=== PATIENT | male | born 1985 | race Caucasian/White ===

== ENCOUNTER 2020-06-23 03:58 | Emergency (ER) | payer OTHER ==
[2020-06-23 05:03] VITALS: BP 128/77
[2020-06-23] MEDS ORDERED: TETRACAINE HCL 0.5% OPH SOLN 4 ML OU ONE (05:48)
[2020-06-23] MEDS ORDERED: OXYCODONE-ACETAMINOPHEN 5-325 MG TABLET PO ONE (08:10)
--- NOTE | 2020-06-23 08:10 | ER Document Report ---
ED General - General Chief Complaint: Eye Pain Stated Complaint: EYE PROBLEMS/PAIN Time Seen by Provider: 06/23/20 07:42 Primary Care Provider: ABIGAIL,JEANNIE [Primary Care Provider] - Follow up as needed - HPI Notes: Chief complaint: Pain and redness of both eyes after welding. History of present illness: Previously healthy 34-year-old male taking no regular medications and not currently using glasses or contacts presents with redness and irritation of both eyes with associated pain after welding yesterday. Patient says he was wearing a protective shield. He notes that the re were a lot of fumes generated by the material he was welding. His eyes are extremely painful when he is exposed to light. He has mild blurring of vision. - Related Data Allergies/Adverse Reactions: Penicillins Allergy (Verified 06/23/20 05:04) Home Medications: buspar, ibuprofen, heart burn med, lexapro. Past Medical History - General Information source: Patient - Social History Smoking Status: Current Every Day Smoker Frequency of alcohol use: Occasional Drug Abuse: None Lives with: Family Family History: Reviewed & Not Pertinent - Medical History Medical History: Negative Surgical Hx: Negative Review of Systems - Review of Systems Notes: Constitutional: Negative for fever. HENT: Negative for sore throat. Eyes: As per HPI. Cardiovascular: Negative for chest pain. Respiratory: Negative for shortness of breath. Gastrointestinal: Negative for abdominal pain, vomiting or diarrhea. Genitourinary: Negative for dysuria. Musculoskeletal: Negative for back pain. Skin: Negative for rash. Neurological: Negative for headaches, weakness or numbness. 10 point ROS negative except as marked above and in HPI. Physical Exam - Vital signs Vitals: Temp Pulse Resp BP Pulse Ox 97.8 F 77 18 128/77 H 99 06/23/20 04:06 06/23/20 04:06 06/23/20 04:06 06/23/20 04:06 06/23/20 04:06 - Notes Notes: GENERAL: Well-developed well-nourished male approximately stated age appearing uncomfortable and photophobic. SKIN: Good turgor no rashes. HEAD: Normocephalic atraumatic. EYES: Bilateral conjunctival injection. PERRLA. EOMI. EARS: CANALS AND TMS CLEAR. NOSE: CLEAR. MOUTH: Moist mucosa. Good dentition. No stridor or edema. No drooling. NECK: Supple. No masses or thyromegaly. No adenopathy. Carotids 2+ without bruits. No JVD. BACK: Symmetrical without tenderness. CHEST: Respirations unlabored. Breath sounds clear and symmetrical. HEART: Regular rhythm. No murmur gallop or rub. ABDOMEN: Soft nontender without masses, organomegaly or rebound. Bowel sounds normally active. No bruits. GENITALIA: Deferred. EXTREMITIES: No edema. No calf tenderness. Cap refill less than 1.5 seconds. Dorsalis pedis and posterior tibial pulses 3+ and symmetrical. NEUROLOGICAL: GCS 15. Alert and oriented x3. Normal gait. Fluent speech. C ranial nerves II through XII intact. Sensorimotor and cerebellar normal. Normal tone. PSYCHIATRIC: Appropriate affect. - HEENT Visual acuity- Right eye: 20/20 Visual acuity- Left eye: 20/20 Visual acuity- Both eyes: 20/20 Corrective lenses worn: No Course - Re-evaluation Re-evalutation: 06/23/20 08:10 Patient has superficial UV briceno of the cornea bilaterally with punctate keratitis. Topical anesthetic drops here. Oral Percocet here. I will send him out on as needed Percocet and use of Cyclogyl and Polytrim drops with ophthalmology follow-up. Suggest use of sunglasses and avoidance of bright light. Findings, clinical impression and plan of treatment have been discussed with patient/family. Understanding of current findings and recommendations has been acknowledged by them and there is agreement regarding disposition and follow-up. - Vital Signs Vital signs: Temp Pulse Resp BP Pulse Ox 97.8 F 77 18 128/77 H 99 06/23/20 04:06 06/23/20 04:06 06/23/20 04:06 06/23/20 04:06 06/23/20 04:06 - Laboratory Results Critical Laboratory Results Reviewed: No Critical Results - Radiology Results Critical Radiology Results Reviewed: No Critical Results Procedures - Eye Procedure Bilateral Time completed: 08:05 Eye Irrigated w/ Saline (ccs): 200 Alcaine Drops Administered: Yes Fluorescein applied: Bilateral Slit lamp used: Yes Notes: 06/23/20 08:09 Bilateral conjunctival injection and changes consistent with a punctate keratitis. No foreign body on lid eversion. No ulcerations. No dendrites. Discharge - Discharge Clinical Impression: Superficial punctate keratitis of both eyes, UV corneal briceno Condition: Stable Disposition: HOME, SELF-CARE Additional Instructions: Eye Injury You have been evaluated for an eye injury or problem. At this time no serious, vision-threatening problem could be found. In this case you have sustained very superficial briceno to the surface of both eyes related to welding. Use prescribed medication. Wear sunglasses. Don't drive or operate machinery until you have the use of both your eyes. Call the doctor or return at once if you develop severe pain, decreasing vision, eye swelling, or pus drainage. Follow-up with an waiter/waitress head if your symptoms have not totally resolved within the next 48 hours. Prescriptions: Cyclopentolate HCl [Cyclogyl 1% Drops] 15 ml OP TID 3 Days #2 drops Oxycodone HCl/Acetaminophen [Percocet 5-325 mg Tablet] 1 tab PO Q6H PRN #12 tab PRN Reason: Polymyxin B Sulf/Trimethoprim [Polytrim Eye Drops] 10 ml OP TID 3 Days #2 drops [facility]errals: [facility] [Primary Care [facility]] - Follow up as needed
== END 2020-06-23 09:01 | disposition home or self-care (01) ==
LOC: ER 03:58
DX: T26.12XA Burn of cornea and conjunctival sac, left eye, initial encounter (principal); T26.11XA Burn of cornea and conjunctival sac, right eye, initial encounter; H16.8 Other keratitis; H57.13 Ocular pain, bilateral; H53.8 Other visual disturbances; X08.8XXA Exposure to other specified smoke, fire and flames, initial encounter; Z88.0 Allergy status to penicillin; F17.200 Nicotine dependence, unspecified, uncomplicated; Z79.899 Other long term (current) drug therapy
CPT/HCPCS: 99284; J3490